=== PATIENT | male | born 1955 | race Two or more races ===

== ENCOUNTER 2017-03-05 14:43 | Emergency (ER) | payer MEDICAID ==
[~2017-03-05] VITALS: Ht 165.1 cm; Wt 63.5 kg
--- NOTE | 2017-03-05 15:29 | Emergency Room Report ---
History of Present Illness General Chief Complaint: Lower Extremity Injury Source: Patient Present Illness HPI 61-year-old male presents to the emergency department complaining of progressive pain, swelling, erythema and increased temperature to the right lower extremity over the course of 3 days. Patient states that he fell from a ladder 6 days ago and was evaluated at an alternate emergency department for which he had x-rays that were negative and was sent home. Patient states that he sustained several open wounds from a fall. Patient denies bleeding at this time. Patient reports receiving tetanus vaccination last week at initial evaluation. Patient states that he has had progression of swelling and redness most prominently over the last 3 days denies fevers, chills or history of immunocompromise or diabetes. Patient denies new trauma or fall. He states pain is exacerbated upon weight-bearing or palpation. Denies recent travel or blood disorder. Denies numbness tingling or loss of sensation or gross motor movements of the extremities, incontinence of bowel or bladder. Denies CP, Palpitations, LOC, AMS, dizziness, Changes in Vision, Sensation, paresthesias, or a sudden severe headache Allergies: Coded Allergies: No Known Allergies (Unverified , 03/05/17) Patient History Past Medical History: see triage record Past Surgical History: none Pertinent Family History: none Immunizations: UTD Reviewed Nursing Documentation: PMH: Agreed, PSxH: Agreed Nursing Documentation-PMH Past Medical History: No Stated History Review of Systems All Other Systems: negative except mentioned in HPI Physical Exam Vital Signs Date Time Temp Pulse Resp B/P (MAP) Pulse Ox O2 Delivery O2 Flow Rate FiO2 03/05/17 14:53 97.5 101 20 139/73 95 Room Air Sp02 EP Interpretation: reviewed, normal General Appearance: alert, GCS 15, non-toxic, mild distress Head: normocephalic, atraumatic ENT: hearing grossly normal, normal voice Neck: full range of motion, supple/symm/no masses Respiratory: lungs clear, normal breath sounds, speaking full sentences Cardiovascular #1: normal capillary refill, tachycardia Musculoskeletal: back normal, normal range of motion, inflammation - right lateral friedman/calf, swelling - right lateral friedman/calf, tender - TTP, erythema, increased temperature to palpation with swelling to the lateral and anterior promimal Calf/friedman, no involvement of the knee, FROM of knee, swelling with resolving contusion of the right ankle. pt. is NVI Neurologic: alert, oriented x3, responsive, motor strength/tone normal, sensory intact, speech normal Skin: warm/dry, well hydrated, other - erythema, swelling and increased temperature to palpation of the lateral and anterior proximal right calf/friedman. , abrasions - Multiple abrasions of the right lower extremity in particular a 1.5 cm skin avulsion to the right anterior friedman with moderate surrounding erythema and increased temperature palpation. No obvious foreign bodies Medical Decision Making PA Attestation Dr. Sykes is my supervising Physician whom patient management has been discussed with. Diagnostic Impression: Primary Impression: Cellulitis Qualified Codes: L03.115 - Cellulitis of right lower limb ER Course 61-year-old male presents to the emergency department complaining of progressive pain, swelling, erythema and increased temperature to the right lower extremity over the course of 3 days. Patient states that he fell from a ladder 6 days ago and was evaluated at an alternate emergency department for which he had x-rays that were negative and was sent home. Patient states that he sustained several open wounds from a fall. Patient denies bleeding at this time. Patient reports receiving tetanus vaccination last week at initial evaluation. Patient states that he has had progression of swelling and redness most prominently over the last 3 days denies fevers, chills or history of immunocompromise or diabetes. Patient denies new trauma or fall. He states pain is exacerbated upon weight-bearing or palpation. Denies recent travel or blood disorder. Denies numbness tingling or loss of sensation or gross motor movements of the extremities, incontinence of bowel or bladder. Denies CP, Palpitations, LOC, AMS, dizziness, Changes in Vision, Sensation, paresthesias, or a sudden severe headache. Ddx considered but are not limited to cellulitis, fracture, d/L, gout, DVT just to name a few. Vital signs: tachycardic at 101 bmp. pt. is afebrile, mild distress secondary to pain otherwise non-toxic in appearance. H&PE are most consistent with Given that the erythema, swelling, increased temperature to palpation and tenderness seem to be localized mainly about open wound and on the anterior portion the lower extremity I feel that DVT is of low suspicion at this time. Wells criteria of zero, and that his presentation is more consistent with secondary cellulitis. ORDERS: none required at this time, the diagnosis is clinical ED INTERVENTIONS: -1 gm Vancomycin IV - d/w pt. that Will be treated with outpatient oral antibiotics and to monitor for signs of her sprain/progression of erythema and to especially watch for symptoms progressing into his knee. Discussed with patient that he should follow up with her PMD within 3-5 days or return immediately to the emergency department with worsening/progression of his symptoms or new symptoms. These precautions were also discussed in front of responsible republican that palpation here. DISCHARGE: At this time pt. is stable for d/c to home. Will provide printed patient care instructions, and any necessary prescriptions. Care plan and follow up instructions have been discussed with the patient prior to discharge. Last Vital Signs Date Time Temp Pulse Resp B/P (MAP) Pulse Ox O2 Delivery O2 Flow Rate FiO2 03/05/17 14:53 97.5 101 20 139/73 95 Room Air Disposition: HOME, SELF-CARE Condition: Stable Scripts Clindamycin Hcl (CLINDAMYCIN HCL) 300 Mg Capsule 300 MG ORAL FOUR TIMES A DAY for 7 Days, #28 CAP Prov: Sonali Grady 03/05/17 Patient Instructions: Cellulitis, [id number] Additional Instructions: Take medications as directed. Follow up with a Primary Care Provider in 3-5 days, even if your symptoms have resolved. --Please review list of primary care clinics, if you do not already have a primary care provider Return sooner to ED if new symptoms occur, or current symptoms become worse. - Please note that this Emergency Department Report was dictated using [employer] metall[employer]ist technology software, occasionally this can lead to erroneous entry secondary to interpretation by the dictation equipment. Sonali Grady Mar 05, 2017 15:29
[2017-03-05] MEDS ORDERED: Clindamycin 600mg 50 ML IVPB ONE (15:30)
[2017-03-05] MEDS ORDERED: oxyCODONE HCL/Acetaminophen 5/325mg ORAL ONE (15:30)
[2017-03-05] MEDS ORDERED: Vancomycin 1gm inj IVPB ONE (15:42)
[2017-03-05] MEDS ORDERED: Vancomycin 1 GM in NS 275 ML IVPB ONE (15:45)
[2017-03-05] MEDS ORDERED: Vancomycin 1 GM in D5W 275 ML IVPB ONE (16:00)
[2017-03-05] MEDS ORDERED: CLINDAMYCIN HC300 MG ORAL (17:20)
[2017-03-05 18:05] VITALS: BP 146/70
== END 2017-03-05 18:07 | disposition home or self-care (01) ==
LOC: EMR 15:25
DX: L03.115 Cellulitis of right lower limb (principal)
CPT/HCPCS: 96365; 99284; J3370

== ENCOUNTER 2017-04-11 07:31 | Emergency (ER) | payer MEDICAID ==
[~2017-04-11] VITALS: Ht 160 cm; Wt 70.3 kg
[~2017-04-11 07:31] MED LIST: CLINDAMYCIN HC300 MG ORAL
[2017-04-11] MEDS ORDERED: KEFLEX500 MG ORAL (07:56)
[2017-04-11 08:00] VITALS: BP 148/81
--- NOTE | 2017-04-13 08:07 | Emergency Room Report ---
History of Present Illness General Chief Complaint: Skin Rash/Abscess Source: Patient Present Illness HPI Patient is a 61-year-old male who presented after increased skin rash. Patient gradual onset of symptoms. He reports having. Been diagnosed with fungal infection to his upper tremulous. Patient reported increased discomfort to both hands near the fingernails. He denies recent trauma. Allergies: Coded Allergies: No Known Allergies (Unverified , 03/05/17) Patient History Reviewed Nursing Documentation: PMH: Agreed, PSxH: Agreed Nursing Documentation-PMH Past Medical History: No Stated History Review of Systems All Other Systems: negative except mentioned in HPI Physical Exam Vital Signs Date Time Temp Pulse Resp B/P (MAP) Pulse Ox O2 Delivery O2 Flow Rate FiO2 04/11/17 07:36 97.5 95 20 148/81 99 Room Air General Appearance: well appearing, no apparent distress, alert, GCS 15, non- toxic Head: normocephalic, atraumatic ENT: hearing grossly normal, normal voice Neck: full range of motion, supple Respiratory: no respiratory distress, speaking full sentences Cardiovascular #1: normal inspection Musculoskeletal: no calf tenderness Neurologic: normal inspection, alert, oriented x3, responsive, normal gait Psychiatric: mood/affect normal Skin: other - minimal erythema near nailfold of multiple nails, callouses to hands Medical Decision Making Diagnostic Impression: Primary Impression: Paronychia ER Course Patient presented for skin rash. Differential diagnosis included was not limited to tinea, paronychia, callous, foreign body among others. Patient has a benign exam and does not appear to require any further imaging or laboratory testing at this time. The patient presented minimal infection to the fingers at the nail fold. The patient does not appear to require incision and drainage at this time. The patient is advised to follow up with primary care doctor in 1-2 days. Patient is advised to return if any worsening condition or if any changes in status that are concerning. This report is dictated with [employer] digital archivist software which may occasionally lead to discrepancies related to use of this software. Last Vital Signs Date Time Temp Pulse Resp B/P (MAP) Pulse Ox O2 Delivery O2 Flow Rate FiO2 04/11/17 08:00 97.5 20 148/81 99 Room Air 04/11/17 07:36 95 Status: improved Disposition: HOME, SELF-CARE Condition: Stable Scripts Cephalexin* (KEFLEX*) 500 Mg Capsule 500 MG ORAL Q6H, #28 CAP 0 Refills Prov: Jeffery Saravia 04/11/17 Referrals: NOT CHOSEN IPA/MD,REFERRING (PCP) Patient Instructions: Fingertip Infection Jeffery Saravia Apr 13, 2017 08:07
== END 2017-04-11 08:05 | disposition home or self-care (01) ==
LOC: EMR 08:01
DX: L03.012 Cellulitis of left finger (principal); L03.011 Cellulitis of right finger; L84 Corns and callosities
CPT/HCPCS: 99282